=== PATIENT | female | born 2000 | race Caucasian/White ===

== ENCOUNTER 2024-03-17 09:25 | Outpatient (CLI) | payer OTHER ==
[2024-03-17 12:00] LABS: BASOPHILS # (AUTO) 0.1 10^3/uL (0.0-0.1); BASOPHILS % (AUTO) 1.4 %; EOSINOPHILS # (AUTO) 0.1 10^3/uL (0.0-0.7); EOSINOPHILS % (AUTO) 2.9 %; HCT - HEMATOCRIT 42.9 % (37.0-47.0); HGB - HEMOGLOBIN 13.4 g/dL (12.0-16.0); LYMPHOCYTES # (AUTO) 1.4 10^3/uL (1.5-3.5); LYMPHOCYTES % (AUTO) 39.9 %; MEAN CORPUSCULAR HEMOGLOBIN 30.9 pg (27.0-31.0); MEAN CORPUSCULAR HGB CONC 31.2 g/dL (32.0-36.0); MEAN CORPUSCULAR VOLUME 98.8 fL (81.0-99.0); MONOCYTES # (AUTO) 0.3 10^3/uL (0.0-1.0); MONOCYTES % (AUTO) 8.6 %; NEUTROPHILS # (AUTO) 1.6 10^3/uL (1.5-6.6); NEUTROPHILS % (AUTO) 47.2 %; RED BLOOD COUNT 4.34 10^6/uL (4.20-5.40); WHITE BLOOD COUNT 3.5 x10^3/uL (4.8-10.8)
[2024-03-17 12:06] LABS: SLIDE REVIEW? Indicated
[2024-03-17 12:14] LABS: % IRON SATURATION 29 % (20-50); ALBUMIN 4.8 g/dL (3.2-5.5); ALBUMIN/GLOBULIN RATIO 1.9 (1.0-2.2); ALKALINE PHOSPHATASE 40 IU/L (42-121); ALT ALANINE AMINOTRANSFERASE 16 IU/L (10-60); AST ASPARTATE AMINOTRANSFERASE 21 IU/L (10-42); BILIRUBIN,TOTAL 0.7 mg/dL (0.2-1.0); BUN - BLOOD UREA NITROGEN 23 mg/dL (6-20); CALCIUM 9.8 mg/dL (8.5-10.3); CARBON DIOXIDE - CO2 30 mmol/L (21-32); CHLORIDE 104 mmol/L (101-111); CHOL/HDL RATIO 2.5 (<4.4); CHOLESTEROL 221 mg/dL; CREATININE 0.9 mg/dL (0.6-1.3); GFR - MDRD 76 (>89); GLUCOSE 96 mg/dL (74-104); HDL CHOLESTEROL 90 mg/dL; IRON 119 ug/dL (50-212); POTASSIUM 4.3 mmol/L (3.5-4.5); SODIUM 138 mmol/L (135-145); TOTAL IRON BINDING CAPACITY 414 ug/dL (250-450); TOTAL PROTEIN 7.3 g/dL (6.4-8.9); TRANSFERRIN 296 mg/dL (203-362); TRIGLYCERIDES 31 mg/dL
[2024-03-17 12:20] LABS: BILIRUBIN,URINE NEGATIVE (NEGATIVE); GLUCOSE, URINE (UA) NEGATIVE (NEGATIVE); KETONES,URINE (UA) NEGATIVE (NEGATIVE); LEUKOCYTE ESTERASE, URINE NEGATIVE (NEGATIVE); NITRITE,URINE NEGATIVE (NEGATIVE); OCCULT BLOOD,URINE NEGATIVE (NEGATIVE); PROTEIN,URINE NEGATIVE (NEGATIVE); UROBILINOGEN,URINE 0.2 (NORMAL) E.U./dL (NORMAL)
[2024-03-17 12:21] LABS: CLARITY,URINE CLEAR (CLEAR); PLATELET ESTIMATE, MANUAL NORMAL (130-450,000) (NORMAL); PLATELET MORPHOLOGY PLATELET CLUMPING (NORMAL); RBC MORPHOLOGY (MULTIPLE) NORMAL APPEARANCE (NORMAL)
[2024-03-17 12:24] LABS: THYROID STIMULATING HORMONE 0.97 uIU/mL (0.34-5.60)
== END 2024-03-17 09:26 | disposition home or self-care (01) ==
LOC: LAB.N 09:25
DX: Z00.00 Encounter for general adult medical examination without abnormal findings (principal); R14.0 Abdominal distension (gaseous); Z86.59 Personal history of other mental and behavioral disorders
CPT/HCPCS: 36415; 80053; 80061; 81001; 81003; 82728; 83540; 83721; 84443; 84466; 85025; 87086

== ENCOUNTER 2024-05-15 03:26 | Outpatient (CLI) | payer OTHER | END 2024-05-15 23:59 | disposition critical access hospital (66) | LOC: EMS 03:26 | DX: R10.30 Lower abdominal pain, unspecified (principal); R19.7 Diarrhea, unspecified | CPT/HCPCS: A0425; A0427 ==

== ENCOUNTER 2024-05-15 03:50 | Emergency (ER) | payer OTHER ==
[2024-05-15 04:12] LABS: BILIRUBIN,URINE NEGATIVE (NEGATIVE); GLUCOSE, URINE (UA) NEGATIVE (NEGATIVE); KETONES,URINE (UA) 15 mg/dL (NEGATIVE); LEUKOCYTE ESTERASE, URINE NEGATIVE (NEGATIVE); NITRITE,URINE NEGATIVE (NEGATIVE); OCCULT BLOOD,URINE LARGE (NEGATIVE); PH,URINE 7.5 PH (5.0-7.5); PROTEIN,URINE NEGATIVE (NEGATIVE); UROBILINOGEN,URINE 0.2 (NORMAL) E.U./dL (NORMAL)
[2024-05-15 04:14] LABS: CLARITY,URINE CLEAR (CLEAR); HCG UR QUAL NEGATIVE
[2024-05-15 04:19] LABS: BACTERIA,URINE Many /HPF (None Seen); SQUAMOUS EPITHELIAL CELL,UR RARE Squamous (<= Few)
[2024-05-15 04:20] LABS: BASOPHILS # (AUTO) 0.1 10^3/uL (0.0-0.1); BASOPHILS % (AUTO) 0.7 %; EOSINOPHILS # (AUTO) 0.1 10^3/uL (0.0-0.7); HCT - HEMATOCRIT 36.8 % (37.0-47.0); HGB - HEMOGLOBIN 11.8 g/dL (12.0-16.0); LYMPHOCYTES # (AUTO) 1.5 10^3/uL (1.5-3.5); LYMPHOCYTES % (AUTO) 16.5 %; MEAN CORPUSCULAR HEMOGLOBIN 31.6 pg (27.0-31.0); MEAN CORPUSCULAR HGB CONC 32.1 g/dL (32.0-36.0); MEAN CORPUSCULAR VOLUME 98.4 fL (81.0-99.0); MEAN PLATELET VOLUME 10.7 fL (7.9-10.8); MONOCYTES # (AUTO) 0.5 10^3/uL (0.0-1.0); MONOCYTES % (AUTO) 5.8 %; NEUTROPHILS # (AUTO) 6.7 10^3/uL (1.5-6.6); NEUTROPHILS % (AUTO) 75.8 %; PLT - PLATELET COUNT 189 10^3/uL (130-450); RED BLOOD COUNT 3.74 10^6/uL (4.20-5.40); RED CELL DISTRIBUTION WIDTH 12.5 % (12.0-15.0); WHITE BLOOD COUNT 8.8 x10^3/uL (4.8-10.8)
[2024-05-15 04:31] VITALS: O2SAT 100
[2024-05-15 04:36] LABS: ALBUMIN 3.8 g/dL (3.2-5.5); ALBUMIN/GLOBULIN RATIO 1.6 (1.0-2.2); BILIRUBIN,TOTAL 0.4 mg/dL (0.2-1.0); CALCIUM 8.9 mg/dL (8.5-10.3); CREATININE 0.7 mg/dL (0.6-1.3); POTASSIUM 3.8 mmol/L (3.5-4.5); TOTAL PROTEIN 6.2 g/dL (6.4-8.9)
--- NOTE | 2024-05-15 04:54 | ED Physician Documentation ---
PD HPI FEMALE - Stated complaint Stated Complaint: MID SUPRAPUBIC PX - Chief complaint Chief Complaint: Abd Pain - History obtained from History obtained from: Patient, EMS - Additional information Additional information: 24-year-old female with no reported past medical history presents by EMS from home for approximately 1 hour of severe, burning, suprapubic abdominal pain. Patient states that pain woke her up from sleep. Associated with 3 separate episodes of diarrhea. Patient took an ibuprofen at home but the pain continued to worsen in intensity and so they called 911. EMS reports that when they arrived patient did appear to be quite uncomfortable. Patient was transferred to EMS stretcher and shortly afterwards her pain began to spontaneously improve. Patient was given 4 mg of Zofran for nausea and route, she declined pain medications. Patient did report some vaginal spotting. Last menstrual period in February, patient states it is normal for her to have irregular menstrual cycles, but 3 months is unusual for her. On arrival to the emergency department patient reported a very mild suprapubic burning sensation, but not anywhere near as severe as when she called 911 Review of Systems Constitutional: denies: Fever, Chills Cardiac: denies: Chest pain / pressure, Palpitations, Calf pain Respiratory: denies: Dyspnea, Cough, Wheezing GI: reports: Abdominal Pain, Diarrhea. denies: Nausea, Vomiting, Constipation : reports: Vaginal bleeding. denies: Dysuria, Frequency, Hesitancy, LMP, Irregular menses PD PAST MEDICAL HISTORY - Past Medical History Past Medical History: No - Past Surgical History Past Surgical History: No - Present Medications Home Medications: Ambulatory Orders Medication Instructions Recorded Confirmed Lactobacillus Combination No.4 1 cap PO DAILY 05/15/24 05/15/24 [Probiotic] Magnesium Citrate 600 mg PO DAILY 05/15/24 05/15/24 Vit No.129/Iron/Folic 1 tab PO DAILY 05/15/24 05/15/24 [ One Daily Tablet] Zinc Citrate [Zinc] 1 tab PO DAILY 05/15/24 05/15/24 - Allergies Allergies/Adverse Reactions: Allergies Allergy/AdvReac Type Severity Reaction Status Date / Time No Known Drug Allergies Allergy Verified 05/15/24 04:06 - Social History Does the pt smoke?: No Smoking Status: Never smoker Does the pt drink ETOH?: Yes ETOH Use: Liquor Does the pt have substance abuse?: No - Immunizations Immunizations are current?: Yes - POLST Patient has POLST: No PD ED PE NORMAL - Vitals Vital signs reviewed: Yes - General General: Alert and oriented X 3, No acute distress, Well developed/nourished - Cardiac Cardiac: Strong equal pulses, Other (Bradycardia) - Respiratory Respiratory: No respiratory distress - Abdomen Abdomen: Soft, Non tender, Non distended - Derm Derm: Normal color, Warm and dry, No rash - Neuro Neuro: Alert and oriented X 3, instrument lens generator 2-12 intact, No motor deficit, Normal speech - Psych Psych: Normal mood, Normal affect Results - Vitals Vitals: Vital Signs - 24 hr 05/15/24 05/15/24 05/15/24 03:50 04:19 04:58 Temperature 36.4 C L 36.9 C Heart Rate 52 L 51 L 58 L Respiratory 18 16 16 Rate Blood Pressure 100/54 L 100/54 L 110/68 O2 Saturation 99 100 100 Oxygen O2 Source Room air - Labs Labs: Laboratory Tests 05/15/24 05/15/24 05/15/24 04:05 04:14 04:14 WBC 8.8 RBC 3.74 L Hgb 11.8 L Hct 36.8 L MCV 98.4 MCH 31.6 H MCHC 32.1 RDW 12.5 Plt Count 189 MPV 10.7 Neut # (Auto) 6.7 H Lymph # (Auto) 1.5 [place] # (Auto) 0.5 Eos # (Auto) 0.1 Baso # (Auto) 0.1 Absolute Nucleated RBC 0.00 Nucleated RBC % 0.0 Sodium 138 Potassium 3.8 Chloride 107 Carbon Dioxide 25 Anion Gap 6.0 BUN 24 H Creatinine 0.7 Estimated GFR (MDRD) 102 Glucose 113 H Calcium 8.9 Total Bilirubin 0.4 AST 23 ALT 16 Alkaline Phosphatase 28 L Total Protein 6.2 L Albumin 3.8 Globulin 2.4 Albumin/Globulin Ratio 1.6 Lipase 36 Urine Color YELLOW Urine Clarity CLEAR Urine pH 7.5 Ur Specific Cache 1.020 Urine Protein NEGATIVE Urine Glucose (UA) NEGATIVE Urine Ketones 15 H Urine Occult Blood LARGE H Urine Nitrite NEGATIVE Urine Bilirubin NEGATIVE Urine Urobilinogen 0.2 (NORMAL) Ur Leukocyte Esterase NEGATIVE Urine RBC 6-10 H Urine WBC 4-5 Ur Squamous Epith Cells RARE Squamous Urine Bacteria Many H Ur Microscopic Review INDICATED Urine Culture Comments NOT INDICATED Urine HCG, Qual NEGATIVE PD Medical Decision Making - ED course Complexity details: reviewed results, re-evaluated patient, considered differential, d/w patient, d/w family ED course: Suprapubic burning abdominal pain with diarrhea, now resolved. Abdomen soft, no distention, no peritoneal signs, minimal tenderness to deep palpation in the suprapubic region. Patient states her pain is almost entirely resolved from when she called 911. Laboratory work ordered. With isolated suprapubic tenderness in a young otherwise healthy female who symptoms are already mostly resolved believe CT to be low yield. It is overnight and we do not currently have ultrasound imaging at this time. Laboratory work is reviewed, no significant abnormalities identified. Urine has bacteria without evidence of infection. test negative. Patient reassessed, resting in bed, reports a mild suprapubic burning sensation, but states that it is very manageable and again not as severe as when she called 911. Laboratory work discussed with patient and her who is now present at bedside. Offered to monitor patient until ultrasound imaging is available in 2 hours, however patient declined stating that she just wanted to go home and sleep. I recommended taking Tylenol and ibuprofen before going to bed, if her pain returns she should come back to the emergency department for discussion of imaging. Otherwise recommended MEDICINE AND HEALTH SERVICE MANAGER follow-up if symptoms persist. Departure - Departure Disposition: 01 Home, Self Care Clinical Impression: Pelvic pain in female Condition: Stable Instructions: ED Pelvic Pain [facility] Comments: Your laboratory work here today was reassuring. Your urine test was negative and there is no sign of acute infection in your urine. Take 400 mg of ibuprofen and 1000 mg of Tylenol before you go to bed. If your pain returns or worsens please return to the emergency department for repeat assessment and possible ultrasound imaging. Forms: PCP List Discharge Date/Time: 05/15/24 05:00
[2024-05-15 05:01] VITALS: BP 110/68
== END 2024-05-15 05:00 | disposition home or self-care (01) ==
LOC: EDUNIT# → ED 03:50
DX: R10.2 Pelvic and perineal pain (principal); R19.7 Diarrhea, unspecified
CPT/HCPCS: 36415; 80053; 81001; 81003; 81025; 83690; 85025; 87086; 99283